=== PATIENT | female | born 1990 | race Caucasian/White ===

== ENCOUNTER 2020-04-01 19:46 | Emergency (ER) | payer MEDICAID ==
[~2020-04-01] VITALS: Ht 154.9 cm; Wt 82.8 kg
--- NOTE | 2020-04-01 20:15 | NUR ---
assumed care of pt. pt here for unwitnessed syncope [employer] while she was cooking dinner [employer]. pt reports that she has had a GARSIA for a couple of days and that she felt dizzy and then woke up on the floor. denies hitting her head or any other injury. pt reports that she has a sharp sternal pain, but denies SOB. no resp. distress. pt is A&O. tearful but cooperative. reports that she feels like she is having intermitted vision changes to R eye. PERRLA. pt is speaking full sentences without diffiuclty. no facial dropp notes. CORTEZ. no family at bedside. lab has been to bedside to draw
[2020-04-01 20:26] LABS: BASOPHILS % (AUTO) 1 % (0-1); EOSINOPHILS % (AUTO) 2 % (1-7); LYMPHOCYTES % (AUTO) 35 % (22-44); MEAN CORPUSCULAR HEMOGLOBIN 30.8 pg (27.0-34.8); MEAN CORPUSCULAR HGB CONC 34.3 g/dL (32.4-35.8); MEAN PLATELET VOLUME 8.4 fL (7.4-10.4); MONOCYTES % (AUTO) 6 % (2-9); NEUTROPHILS % (AUTO) 57 % (42-75); PLATELET COUNT 294 x10^3/uL (130-400); RED BLOOD COUNT 4.91 x10^6/uL (3.82-5.3); RED CELL DISTRIBUTION WIDTH 12.6 % (9.6-15.2)
[2020-04-01 20:30] LABS: MD NO
[2020-04-01] MEDS ORDERED: MAALOX/HYOSCYAMINE/LIDOCAINE 45 ML BTL PO ONE (20:30)
[2020-04-01] MEDS ORDERED: SODIUM CHLORIDE FLUSH 10ML SYR IVF ONE (20:30)
[2020-04-01] MEDS ORDERED: PANTOPRAZOLE 40 MG IV IVPush SCH (20:30)
[2020-04-01] MEDS ORDERED: METOCLOPRAMIDE 5 MG/ML, 2ML IVPush ONE (20:30)
[2020-04-01] MEDS ORDERED: SODIUM CHLORIDE 0.9% 1,000ML IVBOLUS ONE (20:30)
[2020-04-01 20:37] LABS: ALBUMIN 4.2 g/dL (3.4-5.0); ANION GAP 6 mmol/L (5-15); CHLORIDE 106 mmol/L (98-107); CREATININE 0.76 mg/dL (0.55-1.02)
--- NOTE | 2020-04-01 20:38 | NUR ---
pt to [facility] via [facility]
--- NOTE | 2020-04-01 20:50 | NUR ---
pt ambulated to [facility]
--- NOTE | 2020-04-01 21:30 | NUR ---
pt has been medicated per order. pt advised not to drive after GI cocktail. pt verbalized understanding. pt resting in position of comfort. warm blankets given and lights dimmed for comfort
[2020-04-01] MEDS ORDERED: METOCLOPRAMIDE 5 MG/ML, 2ML ONE (21:33)
[2020-04-01] MEDS ORDERED: PANTOPRAZOLE 40 MG IV ONE (21:34)
[2020-04-01] MEDS ORDERED: MAALOX/HYOSCYAMINE/LIDOCAINE 45 ML BTL ONE (21:35)
[2020-04-01 21:43] VITALS: BP 107/71
--- NOTE | 2020-04-01 22:08 | NUR ---
pt is not in room. report to Janice [facility]
== END 2020-04-01 22:55 | disposition left against medical advice (07) ==
LOC: ED 22:14
DX: R55 Syncope and collapse (principal); R51.9 Headache, unspecified; R07.9 Chest pain, unspecified; J45.909 Unspecified asthma, uncomplicated
CPT/HCPCS: 36415; 70450; 80048; 82040; 84703; 85025; 93005; 96361; 96374; 96375; 99285; C9113; J2765; J7030